=== PATIENT | female | born 1990 | race Caucasian/White ===

== ENCOUNTER 2017-05-25 10:18 | Outpatient (CLI) | payer BC ==
[~2017-05-25] VITALS: Ht 172.7 cm; Wt 77.6 kg
[2017-05-25 10:27] VITALS: BP 131/84
[2017-05-25] MEDS ORDERED: PREN-8 PO (10:27)
== END 2017-05-25 10:45 | disposition home or self-care (01) ==
LOC: PREOP 10:18
PROVIDERS: ATTEND Obstetrics & Gynecology
DX: Z01.818 Encounter for other preprocedural examination (principal); O34.219 Maternal care for unspecified type scar from previous cesarean delivery; Z3A.00 Weeks of gestation of pregnancy not specified
CPT/HCPCS: 87081

== ENCOUNTER 2017-06-01 10:05 | Inpatient (IN) | payer BC, OTHER ==
[~2017-06-01] VITALS: Ht 172.7 cm; Wt 77.6 kg
[2017-06-01 10:00] VITALS: BP 123/81
[~2017-06-01 10:05] MED LIST: PREN-8 PO
[2017-06-01] MEDS ORDERED: LACTATED RINGERS 1,000 ML IV PRN ×2 (10:44)
[2017-06-01] MEDS ORDERED: FAMOTIDINE 20MG/2ML IV (PEPCID) IV ONE (10:45)
[2017-06-01] MEDS ORDERED: CITRIC ACID/SOB CIT (BICITRA) 30 ML UDC PO ONE (10:45)
[2017-06-01] MEDS ORDERED: METOCLOPRAMIDE INJ 10 MG/2 ML (REGLAN) IV ONE (10:45)
[2017-06-01] MEDS ORDERED: CATHETER FLUSH 10 ML SYR IV PRN (10:45)
[2017-06-01 10:54] LABS: BASOPHILS % (AUTO) 0 % (0-10); EOSINOPHILS # (AUTO) 0.1 10^3/uL (0.0-0.3); EOSINOPHILS % (AUTO) 1 % (0-10); LYMPHOCYTES # (AUTO) 1.8 X 10^3 (1.0-4.0); LYMPHOCYTES % (AUTO) 22 % (12-44); MEAN CORPUSCULAR HEMOGLOBIN 29 PG (25-34); MEAN CORPUSCULAR HGB CONC 34 G/DL (32-36); MEAN CORPUSCULAR VOLUME 85 FL (80-99); MEAN PLATELET VOLUME 11.1 FL (7.4-10.4); MONOCYTES # (AUTO) 0.6 X 10^3 (0.0-1.0); MONOCYTES % (AUTO) 7 % (0-12); NEUTROPHILS # (AUTO) 5.6 X 10^3 (1.8-7.8); NEUTROPHILS % (AUTO) 69 % (42-75); PLATELET COUNT 184 10^3/uL (130-400); RED BLOOD COUNT 3.95 10^6/uL (4.35-5.85); RED CELL DISTRIBUTION WIDTH 12.7 % (10.0-14.5); WHITE BLOOD COUNT 8.1 10^3/uL (4.3-11.0)
[2017-06-01] MEDS ORDERED: ONDANSETRON 4 MG/2 ML (SDV) Z0FRAN ONE ×2 (11:25→11:59)
[2017-06-01] MEDS ORDERED: fentaNYL INJECTION 100 MCG/2 ML AMP ONE (11:25)
[2017-06-01] MEDS ORDERED: OXYTOCIN/NORMAL SALINE 500 ML IV ONE ×3 (11:25→12:39)
[2017-06-01] MEDS ORDERED: metroNIDAZOLE 500 MG/100 ML IVPB (PRE-MIX) IV ONE (11:45)
[2017-06-01] MEDS ORDERED: ceFAZolin 2 GM/NS 50 ML IV ONE (11:45)
--- NOTE | 2017-06-01 11:55 | History & Physical ---
History and Physical Date Seen by Provider: Jun 01, 2017 Time Seen by Provider: 11:53 this patient is a 26-year-old 2 white female with an EDC of June 08, 2017. She presents now for repeat delivery electing weekly. Has rupture membranes or bleeding. She's had no complications with this . She had her initial care in [place] but moved to the area and elected to transfer her care to this area. She had GBS culture after 35 weeks gestation that was negative. Allergies are none Medications are vitamins medical/social/obstetric/family/surgical histories are per the antepartum record HEENT exam is normal Neck is supple no lymphadenopathy no thyromegaly Abdomen is gravid soft nontender nondistended Extreme show clubbing cyanosis. There is no Homans sign. Pelvic exam is deferred monitor shows an occasional contraction with a normal heart rate pattern Lab work is as follows Laboratory Tests Test 06/01/17 10:20 Range/Units White Blood Count 8.1 4.3-11.0 10^3/uL Red Blood Count 3.95 L 4.35-5.85 10^6/uL Hemoglobin 11.6 11.5-16.0 G/DL Hematocrit 34 L 35-52 % Mean Corpuscular Volume 85 80-99 FL Mean Corpuscular Hemoglobin 29 25-34 PG Mean Corpuscular Hemoglobin Concent 34 32-36 G/DL Red Cell Distribution Width 12.7 10.0-14.5 % Platelet Count 184 130-400 10^3/uL Mean Platelet Volume 11.1 H 7.4-10.4 FL Neutrophils (%) (Auto) 69 42-75 % Lymphocytes (%) (Auto) 22 12-44 % Monocytes (%) (Auto) 7 0-12 % Eosinophils (%) (Auto) 1 0-10 % Basophils (%) (Auto) 0 0-10 % Neutrophils # (Auto) 5.6 1.8-7.8 X 10^3 Lymphocytes # (Auto) 1.8 1.0-4.0 X 10^3 Monocytes # (Auto) 0.6 0.0-1.0 X 10^3 Eosinophils # (Auto) 0.1 0.0-0.3 10^3/uL Basophils # (Auto) 0.0 0.0-0.1 10^3/uL assessment and plan 39 week with previous 2 admitted now for repeat delivery. Risk complication recovering follow-up have all been fully discussed. Patient accepts the risk and radiating to proceed. 39 week with previous Allergies and Home Medications Allergies Coded Allergies: No Known Drug Allergies (Unverified , 05/25/17) Home Medications Vit W-Ca,Fe,FA(<1 mg) 1 Each Tablet, 1 EACH PO DAILY, (Reported) Clinical Quality Measures DVT/VTE Risk/Contraindication: Risk Factor Score Per Nursin RFS Level Per Nursing on Admit: 1=Low/No VTE PPX DELORIS ORDOÑEZ MD Jun 01, 2017 11:55 am
[2017-06-01] MEDS ORDERED: KETOROLAC 30 MG/ML VIAL ONE (11:59)
[2017-06-01] MEDS ORDERED: TETANUS,DIPTH,PERTUSS P/F (BOOSTRIX) 0.5 ML VIAL IM ONE (12:00)
[2017-06-01] MEDS ORDERED: MEASLES,MUMPS,RUBELLA 1 EA INJ SC ONE (12:00)
[2017-06-01] MEDS ORDERED: metroNIDAZOLE 500MG/100ML IVPB 100 ML IV ONE (12:00)
[2017-06-01] MEDS ORDERED: ceFAZolin INJECTION 2,000 MG in NS (IVPB) 50 ML IV ONE (12:00)
[2017-06-01] MEDS ORDERED: fentaNYL INJECTION 100 MCG/2 ML AMP IVP PRN (12:00)
[2017-06-01] MEDS ORDERED: MEPERIDINE (DEMEROL) INJ 100 MG/ML ONE (12:01)
[2017-06-01] MEDS ORDERED: PROMETHAZINE INJ 25 MG/ML (PHENERGAN) AMP ONE (12:01)
[2017-06-01] MEDS ORDERED: D5 LR IV SOLUTION 1,000 ML IV ONE (12:04)
[2017-06-01] MEDS ORDERED: PHENYLEPHRINE 100 MCG/ML 10 ML (ANESTHESIA) SYR ONE (12:27)
[2017-06-01] MEDS ORDERED: ATROPINE INJ 0.4 MG/ML SDV ONE (12:27)
[2017-06-01] MEDS: KETOROLAC 30 MG/ML VIAL IVP SCH ×2 (12:45→18:28)
[2017-06-01] MEDS ORDERED: NALOXONE 0.4 MG/ML 1 ML (NARCAN) VIAL IV PRN ×2 (13:00)
[2017-06-01] MEDS ORDERED: diphenhydrAMINE 50 MG/ML INJ (BENADRYL) IV PRN (13:00)
[2017-06-01] MEDS ORDERED: ONDANSETRON 4 MG/2 ML (SDV) Z0FRAN IV PRN (13:00)
[2017-06-01] MEDS ORDERED: MEPERIDINE (DEMEROL) INJ 50 MG/ML IVP PRN (13:00)
[2017-06-01] MEDS ORDERED: METOCLOPRAMIDE INJ 10 MG/2 ML (REGLAN) IV PRN (13:00)
[2017-06-01] MEDS ORDERED: PREN1TAB86 PO (13:12)
[2017-06-01] MEDS: OXYTOCIN/NORMAL SALINE 500 ML IV SCH (13:32)
--- NOTE | 2017-06-01 14:13 | OPERATIVE REPORT ---
DATE OF SERVICE: 06/01/2017 PREOPERATIVE DIAGNOSIS: Term at 39 weeks gestation with 2 previous C-sections. POSTOPERATIVE DIAGNOSIS: Term at 39 weeks gestation with 2 previous C-sections. OPERATIVE PROCEDURE: Repeat low transverse delivery of a viable male infant with Apgars of 8 and 9 at 1 and 5 minutes respectively, weight of 6 pounds and 12 ounces and a time of 1224. OPERATIVE DESCRIPTION: With the patient in the supine position under satisfactory spinal anesthesia, she was prepped and draped in the usual fashion for abdominal surgery. León catheter was placed in the urinary bladder and left to dependent drainage. A repeat Pfannenstiel incision was made through the skin with the scalpel at the site of the patient's previous 2 Pfannenstiel incisions. The scar was removed by taking off a narrow ellipse of the skin and removed the previous scars. The abdomen was then entered in the usual manner. Bladder retractor placed into position and a clean scalpel used to make a 4 cm hysterotomy incision transversely across the lower uterine segment. That lower uterine segment was exceedingly thin, comprised of membranes and peritoneum and a window approximately 2.5-3 cm vertically and 7-8 cm transverse. The incision was extended bluntly; a small amount of amniotic fluid was released on hysterotomy. Diop forceps were applied to facilitate the delivery of a vigorous viable male infant with Apgars of 8 and 9 at 1 and 5 minutes respectively, weight was 6 pounds 12 ounces. Cord blood pH was 7.32 and time was 1224. The infant was bulb suctioned on delivery of the head and again on completion of the delivery. The umbilical cord was doubly clamped and cut and the passed to Nury Nguyen, a pediatric nurse in attendance for delivery. Cord bloods were obtained. The placenta delivered spontaneously Ignacio. It was normal with a 3-vessel cord. The uterus was exteriorized and interior wiped clean with a wet laparotomy sponge. Uterine incision was then closed with a running locked suture of 2-0 Vicryl. Hemostasis was complete except for at the right margin, whereas single [id number] suture also of 2-0 Vicryl placed to affect complete hemostasis. The uterus was now returned to the abdominal cavity. All blood, clot and debris removed from the abdominal cavity. With sponge and needle counts correct and hemostasis assured, the anterior parietal peritoneum was closed with a running suture of 2-0 Vicryl, the rectus muscles were closed with that suture as well. The rectus fascia was closed with 2 sutures of 2-0 Vicryl, subcutaneous tissue was closed with 2-0 Vicryl and the skin was stapled. Sponge and needle counts were correct on completion of the procedure. Estimated blood loss was around 300 mL. The patient tolerated the procedure very well and was taken to the recovery room for recovery. The had been taken stable to the full-term nursery under the care of Nurse Chiu. Job ID: [id number] DocumentID: [id number] Dictated Date: 06/01/2017 12:52:25 Juice Standardizer Date: 06/01/2017 13:30:12 Dictated By: DELORIS ORDOÑEZ MD
[2017-06-01 14:51] VITALS: BP 111/75
[2017-06-01] MEDS: oxyCODONE/APAP 10/325MG (PERCOCET 10) TABLET PO PRN ×2 (16:59→23:02)
[2017-06-01 20:00] VITALS: BP 112/55
[2017-06-01] MEDS: DOCUSATE SODIUM 100 MG (COLACE) CAP PO SCH (20:45)
[2017-06-01 23:39] VITALS: BP 107/64
[2017-06-02] MEDS: KETOROLAC 30 MG/ML VIAL IVP SCH ×2 (00:02→05:49)
[2017-06-02 04:00] VITALS: BP 100/62
--- NOTE | 2017-06-02 07:27 | Progress Note-Standard ---
Standard Progress Note Progress Notes/Assess & Plan Date Seen by Provider: Jun 02, 2017 Time Seen by Provider: 07:25 Progress/Assessment & Plan this patient is without complaint. She is ambulating, voiding, tolerating by mouth well, has good pain control. Patient is requesting discharge home Vital Signs Date Time Temp Pulse Resp B/P (MAP) Pulse Ox O2 Delivery O2 Flow Rate FiO2 06/02/17 04:00 97.5 54 18 100/62 98 Room Air 06/01/17 23:39 97.9 49 18 107/64 97 Room Air 06/01/17 20:00 98.3 48 18 112/55 100 Room Air 06/01/17 14:51 97.0 46 18 111/75 100 Room Air 06/01/17 10:00 68 20 123/81 Room Air Vital signs are stable. Patient is afebrile. Abdomen is benign. Extremities show no clubbing cyanosis. There is no Homans sign. Assessment and plan postoperative day number 1 status post repeat delivery at 39 weeks gestation. Can consider discharge home this afternoon or evening if patient so desires otherwise plan will be for discharge tomorrow Final Diagnosis repeat delivery at 39 weeks gestation DELORIS ORDOÑEZ MD Jun 02, 2017 7:27 am
[2017-06-02] MEDS ORDERED: IBUP-1780 PO (07:28)
[2017-06-02] MEDS ORDERED: OXYC-465 PO (07:28)
[2017-06-02] MEDS ORDERED: DOCU100C37 PO (07:28)
--- NOTE | 2017-06-02 07:33 | Discharge Instructions ---
Discharge Instructions Discharge Medications New, Converted or Re-Newed RX: RX on Chart Patient Instructions Patient Instructions: as directed Return to The Hospital For: as directed Activity & Diet Discharge Diet: No Restrictions Activity as Tolerated: No Orders-Post D/C & Referrals Follow Up Appt: If discharge is on , June 03, 2017 then RTC 1 week for incision check. If patient is discharged today, Friday, June 02, 2017 then return to clinic on Sunday, June 04, 2017 for staple removal Call to make follow up appt. for patient in 4 weeks. Wound Care: If discharge is on May then Remove damon, apply benzoin and steri strips. If discharge is on Friday, June 02, 2017 - DO NOT REMOVE DAMON PRIOR TO DISCHARGE Activity Per routine post instructions. Please call in RX to patient pharmacy. Diet as tolerated Patient may shower or tub bathe as desired. Continue home meds DELORIS ORDOÑEZ MD Jun 02, 2017 7:33 am
[2017-06-02 07:44] VITALS: BP 110/71
[2017-06-02] MEDS: oxyCODONE/APAP 10/325MG (PERCOCET 10) TABLET PO PRN ×3 (08:55→23:36)
[2017-06-02] MEDS: DOCUSATE SODIUM 100 MG (COLACE) CAP PO SCH ×2 (08:55→20:22)
[2017-06-02] MEDS: OXYTOCIN/NORMAL SALINE 500 ML IV SCH (09:10)
[2017-06-02] MEDS: IBUPROFEN 800 MG (MOTRIN) TAB PO SCH ×3 (11:43→23:36)
[2017-06-02 12:35] VITALS: BP 109/72
--- NOTE | 2017-06-02 14:25 | Anesthesia-Regional Post-Op ---
Regional Patient Condition Mental Status: Alert, Oriented x3 Circulation: Same as Pre-Op Headache: Absent Sensation: Full Recovery Motor Block: Absent Post Op Complications Complications None Follow Up Care/Instructions Patient Instructions None needed. Anesthesia/Patient Condition Patient is doing well, no complaints, stable vital signs, no apparent adverse anesthesia problems. No complications reported per nursing. PEDRO ROOT CRNA Jun 02, 2017 14:25
[2017-06-02] MEDS: SENNA W/DOCUSATE (SENOKOT S) TABLET PO PRN (16:38)
[2017-06-02 19:48] VITALS: BP 118/72
[2017-06-02 23:47] VITALS: BP 98/66
[2017-06-03] MEDS: IBUPROFEN 800 MG (MOTRIN) TAB PO SCH ×2 (05:49→11:44)
[2017-06-03 06:05] VITALS: BP 101/60
--- NOTE | 2017-06-03 07:43 | Progress Note-Standard ---
Standard Progress Note Progress Notes/Assess & Plan Date Seen by Provider: Jun 03, 2017 Time Seen by Provider: 07:42 Progress/Assessment & Plan this patient is without complaint. She is ambulating, voiding, tolerating by mouth well, has good pain control. Patient is requesting discharge home Vital Signs Date Time Temp Pulse Resp B/P (MAP) Pulse Ox O2 Delivery O2 Flow Rate FiO2 06/02/17 04:00 97.5 54 18 100/62 98 Room Air 06/01/17 23:39 97.9 49 18 107/64 97 Room Air 06/01/17 20:00 98.3 48 18 112/55 100 Room Air 06/01/17 14:51 97.0 46 18 111/75 100 Room Air 06/01/17 10:00 68 20 123/81 Room Air Vital signs are stable. Patient is afebrile. Abdomen is benign. Extremities show no clubbing cyanosis. There is no Homans sign. Assessment and plan postoperative day number 1 status post repeat delivery at 39 weeks gestation. Can consider discharge home this afternoon or evening if patient so desires otherwise plan will be for discharge tomorrow June 03, 2017 Patient is without complaint. She is ambulating, voiding, tolerating fairly well, has good pain control, patient is requesting discharge home. Vital Signs Date Time Temp Pulse Resp B/P (MAP) Pulse Ox O2 Delivery O2 Flow Rate FiO2 06/03/17 06:05 97.6 61 18 101/60 97 Room Air 06/02/17 23:47 98.0 55 18 98/66 97 Room Air 06/02/17 19:48 98.0 58 18 118/72 98 Room Air 06/02/17 12:35 98.0 54 18 109/72 100 Room Air 06/02/17 07:44 97.9 58 16 110/71 100 Room Air vital signs are stable. Patient is afebrile. Fundus is firm below the umbilicus and nontender. The incision is clean dry and intact. extremities show no clubbing or cyanosis. There is no Homans sign. There is some pretibial pitting edema that is normal. Assessment and plan postoperative day number 2 status post repeat delivery at 39 weeks gestation. Patient is doing well and will be discharged home. Final Diagnosis 39 week repeat delivery DELORIS ORDOÑEZ MD Jun 03, 2017 7:43 am
[2017-06-03] MEDS: DOCUSATE SODIUM 100 MG (COLACE) CAP PO SCH (08:52)
[2017-06-03] MEDS: SENNA W/DOCUSATE (SENOKOT S) TABLET PO PRN (13:11)
== END 2017-06-03 14:05 | disposition home or self-care (01) | DRG 766 ==
LOC: LDRP 10:05
PROVIDERS: ADMIT Obstetrics & Gynecology; ATTEND Obstetrics & Gynecology
PROC: 10D00Z1 Extraction of Products of Conception, Low, Open Approach (ICD-10-PCS; principal; 2017-06-01 11:56)
DX: O34.211 Maternal care for low transverse scar from previous cesarean delivery (principal); Z37.0 Single live birth; Z3A.39 39 weeks gestation of pregnancy
CPT/HCPCS: 36415; 85025; 86850; 86900; 86901; 94664

== ENCOUNTER 2019-03-08 05:36 | Outpatient (CLI) | payer BC ==
[~2019-03-08] VITALS: Ht 172.7 cm; Wt 77.6 kg
[~2019-03-08 05:36] MED LIST changes: +DOCU100C37 PO; +IBUP-1780 PO; +OXYC-465 PO; +PREN1TAB86 PO
[2019-03-08] MEDS ORDERED: PREN1TAB79 PO (11:57)
== END 2019-03-08 12:03 | disposition home or self-care (01) ==
LOC: PREOP 05:36
PROVIDERS: ATTEND Obstetrics & Gynecology
DX: Z01.818 Encounter for other preprocedural examination (principal)

== ENCOUNTER 2019-03-14 10:06 | Inpatient (IN) | payer BC | END 2019-03-16 18:35 | disposition home or self-care (01) | LOC: LDRP 10:06 ==

== ENCOUNTER → 2020-04-22 | Outpatient (CLI) | payer BC ==
[~2020-04-22] MED LIST changes: +DOCU-143 PO; +OXYC1TAB12 PO; +PREN1TAB79 PO
== END ==
LOC: LAB 13:24
PROVIDERS: ATTEND Obstetrics & Gynecology
DX: Z32.01 Encounter for pregnancy test, result positive (principal)
CPT/HCPCS: 36415; 84144; 84702